=== PATIENT | female | born 1950 | race Caucasian/White ===

== ENCOUNTER 2017-01-20 18:50 | Emergency (ER) | payer OTHER ==
[~2017-01-20] VITALS: Ht 157.5 cm; Wt 63.8 kg
[2017-01-20 19:51] LABS: BASOPHIL COUNT 0.1 K/uL (0-0.1); EOSINOPHIL (%) 1.3 % (0-5); EOSINOPHIL COUNT 0.1 K/uL (0-0.3); HEMATOCRIT 38.3 % (36.0-46.0); IMMATURE GRANULOCYTE (%) 0.3 % (0.0-0.7); INSTRUMENT ABS NEUTROPHIL CT 5.7 K/uL; LYMPHOCYTE COUNT 1.4 K/uL (1.0-2.8); MCH 29.8 PG (29.0-34.0); MCHC 32.6 G/DL (30.0-36.0); MCV 91.2 FL (83-99); MEAN PLAT.VOLUME 10.4 uM^3 (9.5-12.4); MONOCYTE (%) 5.8 % (3-12); MONOCYTE COUNT 0.5 K/uL (0-0.8); NEUTROPHIL (%) 73.9 % (45-76); NEUTROPHIL COUNT 5.7 K/uL (1.8-6.4); PLATELET COUNT 236 K/uL (156-360); RBC DIS.WIDTH-CV 13.1 % (11.8-14.6); RBC DIS.WIDTH-SD 43.8 % (39-53); WHITE BLOOD COUNT 7.7 K/uL (4.1-10.2)
[2017-01-20 20:02] LABS: CHLORIDE 105 mEq/L (99-109); SODIUM 142 mEq/L (136-147)
[2017-01-20 20:04] LABS: GLUCOSE 103 mg/dL (70-99)
[2017-01-20 20:05] LABS: ANION GAP 11 MEQ/L (2-14)
[2017-01-20 20:08] LABS: GFR ESTIMATE (CALCULATED) > 59 mL/min/
[2017-01-20 20:09] LABS: UREA NITROGEN (BUN) 11 mg/dL (9-23)
[2017-01-20 22:24] VITALS: BP 171/94
[2017-01-20] MEDS ORDERED: ULTRAM50 MG PO (22:25)
[2017-01-20] MEDS ORDERED: CLEOCIN300 MG PO (22:25)
== END 2017-01-20 22:45 | disposition home or self-care (01) ==
LOC: EME 18:50
PROVIDERS: Physician Assistant
DX: R22.0 Localized swelling, mass and lump, head (principal); Z98.890 Other specified postprocedural states; Z88.2 Allergy status to sulfonamides; Z88.5 Allergy status to narcotic agent; Z88.8 Allergy status to other drugs, medicaments and biological substances
CPT/HCPCS: 70487; 80048; 85025; 99281; 99284; J2270; J2405; J3010